=== PATIENT | male | born 1965 | race Caucasian/White ===

== ENCOUNTER → 2021-08-24 | Outpatient (CLI) | payer OTHER ==
--- NOTE | 2021-08-24 17:10 | RAD ---
EXAM: Renal sonogram. HISTORY: Renal disease. TECHNIQUE: Sonographic imaging the kidneys and bladder was performed. COMPARISON: None. FINDINGS: The kidneys are normal in size. There is a 10 mm echogenic lesion within the left kidney, t he appearance of which favors a nonobstructing stone. There is no hydronephrosis. The prevoid bladder volume is 41 cc. There is incidental splenomegaly, measuring 13.4 cm in maximum dimension. The visua lized aorta is normal in caliber. IMPRESSION: 1. No acute sonographic finding. 2. Suspected nonobstructing left renal stone. 3. Incidental splenomegaly. Electronically signed by: Carrie Bowden MD (08/24/2021 5:07 PM) [id number]
== END ==
LOC: US 15:36
PROVIDERS: ATTEND Family Medicine
DX: N28.9 Disorder of kidney and ureter, unspecified (principal)
CPT/HCPCS: 76770